=== PATIENT | male | born 1990 | race Caucasian/White ===

== ENCOUNTER 2024-01-25 11:39 | Emergency (ER) | payer OTHER ==
[~2024-01-25] VITALS: Ht 180.3 cm; Wt 100.0 kg
[2024-01-25 11:43] VITALS: BP 130/74; PULSE 74; RESP 14; TEMP 98.1
== END 2024-01-25 13:42 | disposition left against medical advice (07) ==
LOC: EMS 12:00
DX: S61.211A Laceration without foreign body of left index finger without damage to nail, initial encounter (principal); Z53.21 Procedure and treatment not carried out due to patient leaving prior to being seen by health care provider; W26.8XXA Contact with other sharp object(s), not elsewhere classified, initial encounter; Y93.89 Activity, other specified; Y92.89 Other specified places as the place of occurrence of the external cause; Y99.8 Other external cause status